=== PATIENT | male | born 1935 | race Caucasian/White ===

== ENCOUNTER → 2019-08-14 07:59 | Outpatient (CLI) | payer MEDICARE, BC ==
[2012-01-02 02:21] VITALS: BMI 19.9
== END | disposition home or self-care (01) ==
LOC: D.RAD 07:59
PROVIDERS: ATTEND Otolaryngology
DX: R13.14 Dysphagia, pharyngoesophageal phase (principal)

== ENCOUNTER → 2020-08-27 13:15 | Outpatient (CLI) | payer MEDICARE, BC ==
[2012-01-02 02:21] VITALS: BMI 19.9
== END | disposition home or self-care (01) ==
LOC: D.RAD 08-13 13:00
PROVIDERS: ATTEND Otolaryngology
DX: R13.13 Dysphagia, pharyngeal phase (principal)